=== PATIENT | female | born 1965 | race Caucasian/White ===

== ENCOUNTER 2024-04-02 13:52 | Emergency (ER) | payer SELFPAY ==
[2024-04-02] MEDS: Lidocaine 4% 1 each Patch TOP STA (14:40)
[2024-04-02] MEDS: HYDROmorphone 0.5 MG/0.5 ML Syringe IM ONE (14:47)
[2024-04-02] MEDS: Ketorolac 30 MG/ML SDV IM ONE (14:50)
== END 2024-04-02 16:22 | disposition home or self-care (01) ==
LOC: MW.ED 13:52
DX: M54.42 Lumbago with sciatica, left side (principal); G89.29 Other chronic pain; F17.210 Nicotine dependence, cigarettes, uncomplicated; Z88.5 Allergy status to narcotic agent
CPT/HCPCS: 72131; 96372; 99283; A9270; J1885